=== PATIENT | male | born 1950 | race Caucasian/White ===

== ENCOUNTER 2017-02-18 11:40 | Emergency (ER) | payer OTHER ==
[2017-02-18 11:45] VITALS: BP 142/78; PULSE 72; TEMP 98.3; BMI 29.0
--- NOTE | 2017-02-18 12:10 | PDOC ---
History of Present Illness - General Chief Complaint: Eye Problem Stated Complaint: EYE PAIN Time Seen by Provider: 02/18/17 11:53 History Source: Patient, Family Exam Limitations: Language Barrier (3 days) - History of Present Illness Initial Comments: 02/18/17 12:22 Patient is a 66 y.o. male with a PMH of HTN who presents with 3-4 month history of floating black line and 3 day h/o of black dot in his R visual field. Patient notes opthamological evaluation in 2016 in [place] at which time it was reccomended that he recieve surgery in his L eye for a unknown condition. Patient notes Notes associated intermittent lacrimation. PCP: Jose Banda (subsea engineer, patient's daughter notes Dr. Banda is their family physician) Past surgical: none Medications: Olmesartan (dosage unknown) BID NKDA Past History - Past Medical History Allergies/Adverse Reactions: Allergies Allergy/AdvReac Type Severity Reaction Status Date / Time No Known Allergies Allergy Verified 02/18/17 11:45 Home Medications: Ambulatory Orders Olmesartan Medoxomil [Benicar (Nf)] 40 mg PO BID 02/18/17 GI Disorders: Yes HTN: Yes - Psycho/Social/Smoking Cessation Hx Suicidal Ideation: No Smoking History: Never smoked Information on smoking cessation initiated: No Review of Systems - Review of Systems Constitutional: No: Chills, Fever HEENTM: Yes: Tearing, Recent change in vision Respiratory: No: Cough, Orthopnea, Shortness of Breath, Wheezing Cardiac (ROS): No: Chest Pain, Edema, Irregular Heart Rate, Lightheadedness ABD/GI: No: Constipated, Diarrhea Musculoskeletal: No: Back Pain, Gout Integumentary: No: Dryness, Erythema Neurological: No: Headache, Numbness Psychiatric: No: Anxiety, Depression All Other Systems: Reviewed and Negative *Physical Exam - Vital Signs Last Vital Signs Temp Pulse Resp BP Pulse Ox 98.3 F 72 18 142/78 98 02/18/17 11:42 02/18/17 11:42 02/18/17 11:42 02/18/17 11:42 02/18/17 11:42 - Physical Exam General Appearance: Yes: Nourished, Appropriately Dressed HEENT: positive: EOMI, AKANKSHA, Other (Modified Snellen: R eye 20/70 and L eye 20/ 100) Neck: positive: Trachea midline, Supple Respiratory/Chest: positive: Lungs Clear, Normal Breath Sounds Cardiovascular: positive: Regular Rhythm, Regular Rate, S1, S2 Medical Decision Making - Medical Decision Making 02/18/17 12:14 Patient is a 66 y.o. male who presents with 3-4 month history of floating black line and 3 day h/o of black dot in his R visual field. Physical exam shows no appreciable foriegn body on opthamalogical exam, intact peripheral vision. Modified Snellen R eye 20/70 and L eye 20/100 as patient does not read Turkmen letters but can read numbers. Initial concern is for degenerative vitreous syndrome vs vitreous hemmorage vs. opthalmic artery occlusion (less likely). U/ S of eye shows no vitreous hemmorage, retinal detachment and optic nerve measurement are within normal limits. Opthamologist consult, Dr. Cabrera, recommended patient follow up in his office on Monday. Dr. Cabrera provided his cell phone number to the patient and took phone number of patient's son, Ricky , . *DC/Admit/Observation/Transfer Diagnosis at time of Disposition: Visual disturbance - Discharge Dispostion Admit: No - Referrals Referrals: Karen Muller MD [Primary Care Provider] - - Patient Instructions Additional Instructions: Please call Dr. Parkinson at [phone] should you experience decreased visual loss or eye pain. Please return to the emergency department should you experience slurred speech, extreme weakness or confusion. - Attestations Physician Attestion: 02/18/17 13:29 I, Dr. Augusta Pathak, attest that this document has been prepared under my direction and personally reviewed by me in its entirety. I further attest, that it accurately reflects all work, treatment, procedures and medical decision -making performed by me.
--- NOTE | 2017-02-18 13:23 | PDOC ---
Attending Attestation - Resident Resident Name: Augusta Pathak - ED Attending Attestation I have performed the following: I have examined & evaluated the patient, The case was reviewed & discussed with the resident, I agree w/resident's findings & plan, Exceptions are as noted - HPI HPI: 02/18/17 13:18 66 yo M with h/o prior left eye pathology (unsure name) here with change to vision right eye. started 3 days ago. has had chronic black line in vision for several months in right eye, but 3 days ago noted black dot. no vision loss. no shade like vision loss. was told several years ago he needed surgery on let eye but never had it unsure of reason. no focal nuero muscle weakness. or weakness of facial muscles. no double vision. no visual field loss. no other complaints. does not take any blood thinners. h/o recent travel to [place] several months ago. - Physicial Exam PE: 02/18/17 13:22 awake alert lungs clear heart rrr no mrg. abd soft NT. right eye PERRL, EOMI. left eye PERRL, EOMI. no darkness on fundoscopic exam bilaterally. no pallor. visual acuity as noted in resident note. - Medical Decision Making 02/18/17 13:23 plan bedside optholmological ultrasound for eval of possible detachment vs. hemorrhage. no sx of severe loss consistent with ret a. occlusion. sxs been going onfor 3 days. will d/w opthomology station chief Dr Parkinson [phone]. states will call pt by phone . and will plan to see in office in 72 hrs. will also call pt tomorrow to reassess. given pt phone number. focused ED ultrasound Ocular: indication : right eye black change to vision bilateral ultrasound of eyes performed in both transverse and saggital views using linear transducer. bilat eyes retina intact. no intraocular foreign body noted. retina normal. optic nerve diameter. <5mm bilaterally impression: normal ocular ultrasound bilaterally. cirilli
== END 2017-02-18 13:36 | disposition home or self-care (01) ==
LOC: JER 11:40 → SUPCPDRO 11:40 → JER 13:36
PROC: 4A07X0Z Measurement of Visual Acuity, External Approach (ICD-10-PCS; principal; 2017-02-18)
DX: H53.8 Other visual disturbances (principal); I10 Essential (primary) hypertension
CPT/HCPCS: 99173; 99281-25

== ENCOUNTER 2017-07-03 11:59 | Emergency (ER) | payer OTHER ==
[2017-07-03 12:20] VITALS: BP 151/88; PULSE 82; TEMP 98.4; BMI 25.8
--- NOTE | 2017-07-03 13:04 | PDOC ---
History of Present Illness - General Chief Complaint: Cold Symptoms Stated Complaint: COLD Time Seen by Provider: 07/03/17 12:48 History Source: Patient Exam Limitations: No Limitations - History of Present Illness Initial Comments: 07/03/17 13:01 66 yr male with c/o cold symptoms for 3 days no fever no sob no vomiting pt has no PMHX with same and son with same symptoms 07/03/17 13:02 Severity: reports: mild Past History - Past Medical History Allergies/Adverse Reactions: Allergies Allergy/AdvReac Type Severity Reaction Status Date / Time No Known Allergies Allergy Verified 07/03/17 12:20 Home Medications: Ambulatory Orders Olmesartan Medoxomil [Benicar (Nf)] 40 mg PO BID 02/18/17 COPD: No GI Disorders: Yes HTN: Yes - Suicide/Smoking/Psychosocial Hx Smoking History: Never smoked Have you smoked in the past 12 months: No Information on smoking cessation initiated: No Hx Alcohol Use: No Drug/Substance Use Hx: No Substance Use Type: None *Physical Exam - Vital Signs Last Vital Signs Temp Pulse Resp BP Pulse Ox 98.4 F 82 18 151/88 99 07/03/17 12:17 07/03/17 12:17 07/03/17 12:17 07/03/17 12:17 07/03/17 12:17 - Physical Exam General Appearance: Yes: Nourished, Appropriately Dressed HEENT: positive: EOMI, AKANKSHA, TMs Normal, Pharynx Normal Neck: positive: Supple. negative: Tender, Lymphadenopathy (R), Lymphadenopathy (L) Respiratory/Chest: positive: Lungs Clear, Normal Breath Sounds. negative: Decreased Breath Sounds, Paradoxal Breathing, Crackles, Rales, Wheezing, Hyperresonant, Dullness Cardiovascular: positive: Regular Rhythm, Regular Rate Gastrointestinal/Abdominal: positive: Normal Bowel Sounds, Soft Musculoskeletal: positive: Normal Inspection Extremity: positive: Normal Capillary Refill, Normal Inspection, Normal Range of Motion. negative: Tender Integumentary: positive: Normal Color, Dry, Warm Neurologic: positive: Fully Oriented, Alert, Normal Mood/Affect, Normal Response , Motor Strength 5/5 Medical Decision Making - Medical Decision Making 07/03/17 13:02 cc: cough , no vomiting or diarrhea ear pain no fever well appearing stable vitals non toxic *DC/Admit/Observation/Transfer Diagnosis at time of Disposition: Viral upper respiratory illness - Discharge Dispostion Disposition: HOME Condition at time of disposition: Good - Referrals - Patient Instructions Printed Discharge Instructions: How to Avoid a Cold or Flu Additional Instructions: drink pleanty of fluids to stay well hydrated follow with your doctor for any worsening symptoms - Post Discharge Activity
== END 2017-07-03 13:15 | disposition home or self-care (01) ==
LOC: JERFT 11:59
DX: J06.9 Acute upper respiratory infection, unspecified (principal); B97.89 Other viral agents as the cause of diseases classified elsewhere
CPT/HCPCS: 99281-25